=== PATIENT | female | born 1975 | race Caucasian/White ===

== ENCOUNTER 2020-01-29 21:35 | Emergency (ER) | payer OTHER ==
[~2020-01-29] VITALS: Ht 175.3 cm; Wt 73.2 kg
[2020-01-29 21:37] VITALS: BP 123/84
[2020-01-29] MEDS ORDERED: DIPH,PERTUSS(ACELL),TET VAC/PF 0.5 ML IM-VACC ONE ×2 (22:00→23:36)
--- NOTE | 2020-01-29 23:25 | NUR ---
PT. TO ROOM FROM LOBBY AT THIS TIME.
--- NOTE | 2020-01-29 23:30 | NUR ---
SYNCOPAL EPISODE WHILE IN SHOWER TODAY. REPORTS HITTING FACE, SMALL LAC NOTED ON NOSE, BLEEDING CONTROLED. UNKNOWN DOWN TIME. +DIZZINESS. GROSS NEURO INTACT. DENIES N/V/CP/SOB
[2020-01-29] MEDS ORDERED: NEOSPORIN OINT. PKT 1 PACKET ONE (23:35)
[2020-01-30 00:03] LABS: BASOPHILS # (AUTO) 0.04 x10^3/uL (0-0.1); BASOPHILS % (AUTO) 1 % (0-1); EOSINOPHILS # (AUTO) 0.06 x10^3/uL (0-0.4); EOSINOPHILS % (AUTO) 1 % (1-7); LYMPHOCYTES # (AUTO) 2.56 x10^3/uL (1-3.4); LYMPHOCYTES % (AUTO) 30 % (22-44); MD NO; MEAN CORPUSCULAR VOLUME 84.7 fL (80-100); MEAN PLATELET VOLUME 8.3 fL (7.4-10.4); MONOCYTES # (AUTO) 0.49 x10^3/uL (0.2-0.8); MONOCYTES % (AUTO) 6 % (2-9); NEUTROPHILS # (AUTO) 5.27 x10^3/uL (1.8-6.8); NEUTROPHILS % (AUTO) 63 % (42-75); PLATELET COUNT 222 x10^3/uL (130-400); RED BLOOD COUNT 4.43 x10^6/uL (3.82-5.3); RED CELL DISTRIBUTION WIDTH 14.8 % (9.6-15.2)
[2020-01-30 00:09] LABS: ALBUMIN 3.6 g/dL (3.4-5.0); ANION GAP 7 mmol/L (5-15); CALCIUM 8.7 mg/dL (8.5-10.1); CHLORIDE 108 mmol/L (98-107); CREATININE 0.69 mg/dL (0.55-1.02)
[2020-01-30] MEDS ORDERED: SODIUM CHLORIDE FLUSH 10ML SYR IVF ONE (00:30)
[2020-01-30] MEDS ORDERED: SODIUM CHLORIDE 0.9% 1,000ML IVBOLUS ONE (00:30)
--- NOTE | 2020-01-30 00:42 | NUR ---
piv placed ivf started
== END 2020-01-30 01:44 | disposition home or self-care (01) ==
LOC: ED 01-30 01:30
DX: R55 Syncope and collapse (principal); R42 Dizziness and giddiness; S00.31XA Abrasion of nose, initial encounter; X58.XXXA Exposure to other specified factors, initial encounter; Y93.89 Activity, other specified; Y92.89 Other specified places as the place of occurrence of the external cause; Y99.8 Other external cause status
CPT/HCPCS: 36415; 80048; 82040; 84703; 85025; 90471; 90715; 93005; 99284; J7030